=== PATIENT | female | born 1995 | race Hispanic/Latino ===

== ENCOUNTER 2019-01-28 05:31 | Observation (INO) | payer BC, MEDICAID ==
[~2019-01-28] VITALS: Ht 160 cm; Wt 71.7 kg
[2019-01-28] MEDS ORDERED: PREN-196 PO (05:49)
[2019-01-28 06:15] LABS: APPEARANCE,URINE Clear (CLEAR); BILIRUBIN,URINE Negative (NEGATIVE); COLOR,URINE Yellow (YELLOW); GLUCOSE, URINE (UA) Negative (NEGATIVE); KETONES,URINE Negative (NEGATIVE); LEUKOCYTE ESTERASE ,URINE Negative (NEGATIVE); NITRATE,URINE Negative (NEGATIVE); OCCULT BLOOD,URINE Negative (NEGATIVE); PH,URINE 6.5 (5.0-8.0); PROTEIN,URINE Negative (NEGATIVE)
[2019-01-28 06:22] LABS: AMPHET/METH SCREEN,URINE NEGATIVE (NEGATIVE); BARBITURATE SCREEN, URINE NEGATIVE (NEGATIVE); BENZODIAZEPINES SCREEN,URINE NEGATIVE (NEGATIVE); CANNABINOID SCREEN,URINE NEGATIVE (NEGATIVE); COCAINE SCREEN,URINE NEGATIVE (NEGATIVE); OPIATE SCREEN,URINE NEGATIVE (NEGATIVE); PHENCYCLIDINE SCREEN,URINE NEGATIVE (NEGATIVE)
[2019-01-28] MEDS ORDERED: LACTATED RINGERS 1000ML 1,000 ML IV SCH (06:45)
== END 2019-01-28 10:37 | disposition home or self-care (01) ==
LOC: EDH 05:31 → LDH 05:32
DX: O42.913 Preterm premature rupture of membranes, unspecified as to length of time between rupture and onset of labor, third trimester (principal); Z3A.35 35 weeks gestation of pregnancy; Z79.899 Other long term (current) drug therapy
CPT/HCPCS: 76815; 80305; 81003; 82120; 99283; G0378 ×5; J7120 ×2; 96360

== ENCOUNTER 2019-02-01 16:11 | Observation (INO) | payer BC, MEDICAID | END 2019-02-01 18:45 | disposition home or self-care (01) | LOC: EDH 16:11 → LDH 16:47 ==

== ENCOUNTER → 2022-06-23 | Outpatient (CLI) | payer MEDICAID ==
[~2022-06-23] MED LIST: PREN-196 PO
== END | disposition home or self-care (01) ==
LOC: RAH 12:58
PROVIDERS: ATTEND Neurological Surgery
DX: I51.7 Cardiomegaly (principal); M54.16 Radiculopathy, lumbar region; M47.817 Spondylosis without myelopathy or radiculopathy, lumbosacral region
CPT/HCPCS: 72148